=== PATIENT | male | born 1970 | race Native Hawaiian/Other Pacific Islander ===

== ENCOUNTER 2016-09-24 07:42 | Emergency (ER) | payer OTHER ==
[~2016-09-24] VITALS: Ht 167.6 cm; Wt 81.0 kg
[2016-09-24 07:46] VITALS: BP 166/90
[2016-09-24] MEDS ORDERED: LISI-538 PO (07:52)
--- NOTE | 2016-09-24 08:22 | REP ---
Left calcaneus two views: There is no fracture or dislocation. Mineralization is normal. There is a small Achilles calcaneal spur. There are no calcifications or foreign bodies. Impression: Essentially negative left calcaneus. No fracture. Signed by Keny Jj MD 09/24/2016 08:14 A
== END 2016-09-24 08:27 | disposition home or self-care (01) ==
LOC: M ED 07:42
DX: S90.32XA Contusion of left foot, initial encounter (principal); X58.XXXA Exposure to other specified factors, initial encounter; Y93.9 Activity, unspecified; Y92.239 Unspecified place in hospital as the place of occurrence of the external cause; Y99.0 Civilian activity done for income or pay; Z79.899 Other long term (current) drug therapy

== ENCOUNTER 2017-05-29 08:38 | Emergency (ER) | payer OTHER ==
[2017-05-29] MEDS: KETOROLAC 60 MG/2 ML VIAL (J1885) IM (09:17)
== END 2017-05-29 09:52 | disposition home or self-care (01) ==
LOC: M ED 08:38
DX: S46.911A Strain of unspecified muscle, fascia and tendon at shoulder and upper arm level, right arm, initial encounter (principal); X50.0XXA Overexertion from strenuous movement or load, initial encounter; Y92.59 Other trade areas as the place of occurrence of the external cause; Y99.0 Civilian activity done for income or pay; I10 Essential (primary) hypertension; Z87.891 Personal history of nicotine dependence; Z79.899 Other long term (current) drug therapy
CPT/HCPCS: J1885

== ENCOUNTER → 2018-10-29 | Outpatient (REF) ==
[~2018-10-29] MED LIST: ACET-716 PO; HYDR25TAB PO; KETO10TAB PO; LISI-538 PO; PATA2.5S OU; VIAG100T PO
--- NOTE | 2018-10-30 08:03 | REP ---
Clinical: Pain and disability. Technique: AP, lateral, bilateral oblique and sunrise views of the right knee. Findings: Generalized age-related changes are appreciated including subtle increase sclerosis along the tibial plateau. [place] view demonstrates increase sclerosis along the anterior patellar margin suggesting the possibility of early patellar tendinopathy. No further overt osteoarthritic degenerative changes are appreciated. No effusion. No fracture or dislocation. Impression: Mild age-related degenerative change. Electronically Signed by Braden Arana MD 10/30/2018 07:54 A
--- NOTE | 2018-10-30 08:04 | REP ---
Clinical: Back pain. Technique: AP, lateral, coned-down views of the lumbosacral spine. Findings: Chronic levoconvex scoliosis appreciated along with mild multilevel degenerative changes. Findings include endplate sclerosis with minimal marginal spurring and mild hypertrophic facet change. No acute fracture / compression injury or subluxation. Electronically Signed by Braden Arana MD 10/30/2018 07:55 A
== END ==
LOC: M SMT 14:29
PROVIDERS: ATTEND Internal Medicine
DX: M51.36 Other intervertebral disc degeneration, lumbar region (principal)

== ENCOUNTER 2019-01-24 08:20 | Emergency (ER) | payer OTHER ==
[~2019-01-24] VITALS: Ht 167.6 cm; Wt 75.0 kg
[2019-01-24 08:25] VITALS: BP 162/110
[2019-01-24] MEDS ORDERED: LISI40TA PO (08:28)
[2019-01-24] MEDS ORDERED: METH750T2 PO (09:09)
--- NOTE | 2019-01-24 09:23 | REP ---
HISTORY: Pain after trauma. FINDINGS: The compartments are symmetric and relatively well maintained. There is no acute fracture or destructive osseous lesion. Electronically Signed by Alessandro Fry DO 01/24/2019 09:24 A
== END 2019-01-24 09:58 | disposition home or self-care (01) ==
LOC: M ED 08:20
DX: S83.91XA Sprain of unspecified site of right knee, initial encounter (principal); X58.XXXA Exposure to other specified factors, initial encounter; Y92.099 Unspecified place in other non-institutional residence as the place of occurrence of the external cause; Y93.01 Activity, walking, marching and hiking; Y99.9 Unspecified external cause status; I10 Essential (primary) hypertension; Z79.899 Other long term (current) drug therapy

== ENCOUNTER → 2019-07-20 | Outpatient (CLI) | payer OTHER ==
[~2019-07-20] MED LIST changes: +LISI40TA PO; +METH750T2 PO
[2019-07-20 17:28] LABS: ALBUMIN 4.1 GM/DL (3.2-5.2); ALT/SGPT 46 U/L (12-78); BILIRUBIN,DIRECT 0.1 MG/DL (0.0-0.2); BILIRUBIN,TOTAL 0.3 MG/DL (0.2-1.0); TOTAL PROTEIN 7.6 GM/DL (6.4-8.2)
[2019-07-22 09:11] LABS: HEPATITIS B SURFACE ANTIGEN NEGATIVE (NEGATIVE)
[2019-07-22 09:46] LABS: HEPATITIS C VIRUS ABY INDEX > 11.0 INDEX (<0.8)
[2019-07-24 00:07] LABS: ANTI-MITOCHONDRIAL ANTIBODY <20.0 Units (0.0-20.0); ANTI-SMOOTH MUSCLE ANTIBODY 9 Units (0-19); ANTINUCLEAR ANTIBODIES DIRECT Negative (Negative); HEPATITIS A IgG TOTAL Positive (Negative); HEPATITIS B CORE ANTIBODY IGG Positive (Negative); LIVER-KIDNEY MICROSOMAL ABY <20.1 Units (0.0-20.0)
== END ==
LOC: M LAB 15:49
PROVIDERS: ATTEND Internal Medicine Gastroenterology
DX: R94.5 Abnormal results of liver function studies (principal)

== ENCOUNTER → 2019-08-10 | Outpatient (CLI) | payer OTHER | LOC: M LAB 10:56 | PROVIDERS: ATTEND Internal Medicine Gastroenterology | DX: R94.5 Abnormal results of liver function studies (principal) ==

== ENCOUNTER → 2019-08-14 | Outpatient (CLI) | payer OTHER ==
--- NOTE | 2019-08-14 09:17 | REP ---
REASON: Clinical cirrhosis. COMPARISON: Right upper quadrant ultrasound of 08/25/2015, which was normal. The patient is status post cholecystectomy. The common bile duct measures between 6 and 7 mm. Ultrasonographic evaluation of the liver shows no abnormality or change from the prior exam. There is no intrahepatic ductal dilatation. The imaged portion of the pancreas is seen to be within normal limits. The spleen measures 10.2 x 7.7 x 4.1 cm with a volumetric index calculation of 322, which is within normal limits. No perisplenic abnormalities are noted. The right kidney measures 9.7 x 4.2 x 5.5 cm and the left kidney measures 11.4 x 4.9 x 5.1 cm. No renal abnormality was noted. The imaged portion of the aorta was seen to be within normal limits. There is no free fluid in the abdomen. IMPRESSION: Unremarkable exam as described above. No change in the appearance of the liver when compared to the prior exam. Electronically Signed by Alessandro Fry DO 08/14/2019 09:23 A
== END ==
LOC: M RAD 07:58
PROVIDERS: ATTEND Internal Medicine Gastroenterology
DX: R94.5 Abnormal results of liver function studies (principal)

== ENCOUNTER → 2019-08-24 | Outpatient (CLI) | payer OTHER | LOC: M LABSMTC 10:20 | PROVIDERS: ATTEND Anesthesiology | DX: Z03.818 Encounter for observation for suspected exposure to other biological agents ruled out (principal); Z11.59 Encounter for screening for other viral diseases | CPT/HCPCS: C9803; U0003 ==

== ENCOUNTER 2019-08-27 14:40 | Day surgery (SDC) | payer OTHER ==
[~2019-08-27] VITALS: Ht 165.1 cm; Wt 73.9 kg
[~2019-08-27 14:40] MED LIST changes: +NS 1,000 ML IV ONE
[2019-08-27] MEDS ORDERED: fentaNYL 100 MCG/2 ML INJECTION (J3010) As Ordered ONE (15:56)
[2019-08-27] MEDS ORDERED: propofoL 200 MG/20 ML VIAL As Ordered ONE (15:56)
[2019-08-27] MEDS ORDERED: LIDOCAINE 2% 100MG/5ML SDV (FOR ANES.) As Ordered ONE (15:56)
--- NOTE | 2019-08-27 16:40 | ROOR ---
Patient Name: Ozzie Anguiano Procedure Date: 08/27/2019 3:55 PM Date of : 1970 Age: 49 Room: [facility] Gender: Male Note Status: Finalized Procedure: Upper GI endoscopy Indications: To evaluate esophageal varices in patient with suspected portal hypertension, Exclusion of esophageal varices in patient with suspected portal hypertension Providers: Bradley Valdovinos MD Referring MD: [facility], Admin. Requesting Provider: Medicines: Monitored Anesthesia Care Complications: No immediate complications. Procedure: Pre-Anesthesia Assessment: - Prior to the procedure, a History and Physical was performed, and patient medications and allergies were reviewed. The patient is competent. The risks and benefits of the procedure and the sedation options and risks were discussed with the patient. All questions were answered and informed consent was obtained. Patient identification and proposed procedure were verified by the physician, the nurse and the anesthesiologist in the procedure room. Mental Status Examination: alert and oriented. Airway Examination: normal oropharyngeal airway and neck mobility. Respiratory Examination: clear to auscultation. CV Examination: normal. Prophylactic Antibiotics: The patient does not require prophylactic antibiotics. Prior Anticoagulants: The patient has taken no previous anticoagulant or antiplatelet agents. ASA Grade Assessment: II - A patient with mild systemic disease. After reviewing the risks and benefits, the patient was deemed in satisfactory condition to undergo the procedure. The anesthesia plan was to use monitored anesthesia care (MAC). Immediately prior to administration of medications, the patient was re-assessed for adequacy to receive sedatives. The heart rate, respiratory rate, oxygen saturations, blood pressure, adequacy of pulmonary ventilation, and response to care were monitored throughout the procedure. The physical status of the patient was re-assessed after the procedure. The Endoscope was introduced through the mouth, and advanced to the second part of duodenum. The upper GI endoscopy was accomplished without difficulty. The patient tolerated the procedure well. Findings: The examined esophagus was normal. The Z-line was regular and was found in the distal esophagus. Scattered moderate inflammation characterized by erythema, friability, granularity and linear erosions was found in the gastric antrum. Biopsies were taken with a cold forceps for Helicobacter pylori testing. Verification of patient identification for the specimen was done by the physician and nurse using the patient's name, date and medical record number. Estimated blood loss was minimal. The duodenal bulb and second portion of the duodenum were normal. Impression: - Normal esophagus. - Z-line regular, in the distal esophagus. - Gastritis. Biopsied. - Normal duodenal bulb and second portion of the duodenum. Recommendation: - Patient has a contact number available for emergencies. The signs and symptoms of potential delayed complications were discussed with the patient. Return to normal activities tomorrow. Written discharge instructions were provided to the patient. - High fiber diet. - Continue present medications. - Await pathology results. - Telephone GI clinic for pathology results in 2 weeks. - Return to primary care physician. Bradley Valdovinos MD Bradley Valdovinos MD 08/27/2019 4:39:50 PM Electronically signed by Bradley Valdovinos MD Number of Addenda: 0 Note Initiated On: 08/27/2019 3:55 PM Estimated Blood Loss: Estimated blood loss was minimal.
--- NOTE | 2019-08-27 16:50 | ROOR ---
Patient Name: Ozzie Anguiano Procedure Date: 08/27/2019 3:55 PM Date of : 1970 Age: 49 Room: [facility] Gender: Male Note Status: Finalized Procedure: Colonoscopy Indications: Screening for colorectal malignant neoplasm Providers: Bradley Valdovinos MD Referring MD: [facility], Admin. Requesting Provider: Medicines: Monitored Anesthesia Care Complications: No immediate complications. Procedure: Pre-Anesthesia Assessment: - Prior to the procedure, a History and Physical was performed, and patient medications and allergies were reviewed. The patient is competent. The risks and benefits of the procedure and the sedation options and risks were discussed with the patient. All questions were answered and informed consent was obtained. Patient identification and proposed procedure were verified by the physician, the nurse and the anesthesiologist in the procedure room. Mental Status Examination: alert and oriented. Airway Examination: normal oropharyngeal airway and neck mobility. Respiratory Examination: clear to auscultation. CV Examination: normal. Prophylactic Antibiotics: The patient does not require prophylactic antibiotics. Prior Anticoagulants: The patient has taken no previous anticoagulant or antiplatelet agents. ASA Grade Assessment: II - A patient with mild systemic disease. After reviewing the risks and benefits, the patient was deemed in satisfactory condition to undergo the procedure. The anesthesia plan was to use monitored anesthesia care (MAC). Immediately prior to administration of medications, the patient was re-assessed for adequacy to receive sedatives. The heart rate, respiratory rate, oxygen saturations, blood pressure, adequacy of pulmonary ventilation, and response to care were monitored throughout the procedure. The physical status of the patient was re-assessed after the procedure. The Colonoscope was introduced through the anus and advanced to the terminal ileum, with identification of the appendiceal orifice and IC valve. The colonoscopy was performed without difficulty. The patient tolerated the procedure well. The quality of the bowel preparation was good. The terminal ileum, ileocecal valve, appendiceal orifice, and rectum were photographed. Scope insertion time was 3 minutes. Scope withdrawal time was 10 minutes. The total duration of the procedure was 14 minutes. Findings: The perianal and digital rectal examinations were normal. The terminal ileum appeared normal. Three sessile and semi-pedunculated polyps were found in the rectum, sigmoid colon and transverse colon. The polyps were 5 to 15 mm in size. These polyps were removed with a hot snare. Resection and retrieval were complete. Verification of patient identification for the specimen was done by the physician and nurse using the patient's name, date and medical record number. Many small and large-mouthed diverticula were found in the sigmoid colon. There was no evidence of diverticular bleeding. Non-bleeding external and internal hemorrhoids were found during retroflexion. The hemorrhoids were medium-sized. Impression: - The examined portion of the ileum was normal. - Three 5 to 15 mm polyps in the rectum, in the sigmoid colon and in the transverse colon, removed with a hot snare. Resected and retrieved. - Moderate diverticulosis in the sigmoid colon. There was no evidence of diverticular bleeding. - Non-bleeding external and internal hemorrhoids. Recommendation: - Patient has a contact number available for emergencies. The signs and symptoms of potential delayed complications were discussed with the patient. Return to normal activities tomorrow. Written discharge instructions were provided to the patient. - High fiber diet. - Continue present medications. - Use fiber, for example Citrucel, Fibercon, Konsyl or Metamucil. - Await pathology results. - Repeat colonoscopy in 3 years for surveillance based on pathology results and for surveillance of multiple polyps. - Telephone GI clinic for pathology results in 2 weeks. - Return to primary care physician. Bradley Valdovinos MD Bradley Valdovinos MD 08/27/2019 4:50:08 PM Electronically signed by Bradley Valdovinos MD Number of Addenda: 0 Note Initiated On: 08/27/2019 3:55 PM Estimated Blood Loss: Estimated blood loss was minimal.
[2019-08-27 17:08] VITALS: BP 181/105
== END 2019-08-27 17:07 | disposition home or self-care (01) ==
LOC: M OPP 14:40
PROVIDERS: ATTEND Internal Medicine Gastroenterology
DX: Z12.11 Encounter for screening for malignant neoplasm of colon (principal); K64.8 Other hemorrhoids; K62.1 Rectal polyp; D12.5 Benign neoplasm of sigmoid colon; D12.3 Benign neoplasm of transverse colon; K57.30 Diverticulosis of large intestine without perforation or abscess without bleeding; K29.70 Gastritis, unspecified, without bleeding; I85.00 Esophageal varices without bleeding; I10 Essential (primary) hypertension; G47.30 Sleep apnea, unspecified; Z79.899 Other long term (current) drug therapy; Z86.19 Personal history of other infectious and parasitic diseases
CPT/HCPCS: 43239; 45385; 88305; J3010

== ENCOUNTER → 2020-09-29 | Outpatient (CLI) | payer OTHER ==
[~2020-09-29] MED LIST changes: +HYDR-3490 PO; -HYDR25TAB PO; -LISI-538 PO; +LISI20TA33 PO; -LISI40TA PO; +LISI40TA4 PO; +METH-1165 PO; -METH750T2 PO; -NS 1,000 ML IV ONE
[2020-09-29 16:33] LABS: PLATELET COUNT, AUTOMATED 234 10^3/uL (150-450)
[2020-09-29 16:38] LABS: ALBUMIN 4.3 GM/DL (3.2-5.2); BILIRUBIN,DIRECT 0.2 MG/DL (0.0-0.2); BILIRUBIN,TOTAL 0.6 MG/DL (0.2-1.0); TOTAL PROTEIN 7.6 GM/DL (6.4-8.2)
[2020-09-29 16:48] LABS: INR 1.12; PROTHROMBIN TIME 14.6 SECONDS (12.5-14.3)
[2020-09-29 16:49] LABS: PARTIAL THROMBOPLASTIN TIME 32.6 SECONDS (24.2-38.5)
== END ==
LOC: M LAB 15:19
PROVIDERS: ATTEND Internal Medicine Gastroenterology
DX: R94.5 Abnormal results of liver function studies (principal)

== ENCOUNTER → 2020-10-18 | Outpatient (CLI) | payer OTHER ==
--- NOTE | 2020-10-18 09:47 | REP ---
INDICATION: K74.60 CIRRHOSIS TECHNIQUE: Real time B-mode stovall scale and color Doppler ultrasound examination using curved array transducer. FINDINGS: Liver, spleen, and visualized pancreas are normal in contour, size, echogenicity, and overall appearance. No focal hepatic, splenic or pancreatic lesions are identified. Gallbladder is surgically absent. No biliary ductal dilatation is appreciated and the common bile duct measures 5.0 mm in diameter. The bilateral kidneys are grossly normal in appearance although evaluation of the right kidney is limited due to overlying bowel gas. No obvious hydronephrosis noted bilaterally. Right kidney measures 9.8 cm in length; left kidney measures 10.4 cm in length. Color Doppler evaluation demonstrates normal flow direction, wave pattern and velocities involving the main portal and intrahepatic vasculature. Main portal vein: 20.0 cm/sec Right portal vein: 18.1 cm/sec Left portal vein: 13.7 cm/sec. Hepatic artery: 43.7 cm/sec; RI 0.60. IMPRESSION: Essentially normal age-appropriate complete abdominal ultrasound including color Doppler evaluation of the hepatic vasculature.. <Electronically signed by Braden Arana > 10/18/20 0933
== END ==
LOC: M RAD 08:22
PROVIDERS: ATTEND Internal Medicine Gastroenterology
DX: K74.60 Unspecified cirrhosis of liver (principal)

== ENCOUNTER → 2021-08-12 | Outpatient (CLI) | payer OTHER ==
[2021-08-12 16:26] LABS: BILIRUBIN,DIRECT 0.2 MG/DL (0.0-0.2); BILIRUBIN,TOTAL 0.6 MG/DL (0.2-1.0); TOTAL PROTEIN 7.5 GM/DL (6.4-8.2)
== END ==
LOC: M LAB 15:24
PROVIDERS: ATTEND Internal Medicine Gastroenterology
DX: R94.5 Abnormal results of liver function studies (principal); K74.60 Unspecified cirrhosis of liver

== ENCOUNTER → 2021-08-22 | Outpatient (CLI) | payer OTHER | LOC: M RAD 07:35 | PROVIDERS: ATTEND Internal Medicine Gastroenterology | DX: K74.60 Unspecified cirrhosis of liver (principal); Z90.49 Acquired absence of other specified parts of digestive tract ==

== ENCOUNTER → 2022-08-07 | Outpatient (CLI) | payer OTHER | LOC: M RAD 09:15 | PROVIDERS: ATTEND Internal Medicine Gastroenterology | DX: K74.60 Unspecified cirrhosis of liver (principal) ==

== ENCOUNTER → 2024-04-29 | Outpatient (CLI) | payer OTHER | LOC: M CARPUL 10:43 | PROVIDERS: ATTEND Internal Medicine | DX: R06.09 Other forms of dyspnea (principal) ==

== ENCOUNTER → 2024-05-07 | Outpatient (CLI) | payer OTHER | LOC: M RAD 06:44 | PROVIDERS: ATTEND Internal Medicine | DX: Z87.891 Personal history of nicotine dependence (principal) ==